=== PATIENT | female | born 2000 | race Caucasian/White ===

== ENCOUNTER 2019-08-13 20:37 | Emergency (ER) | payer OTHER ==
[~2019-08-13] VITALS: Ht 152.4 cm; Wt 63.5 kg
--- NOTE | 2019-08-13 21:27 | NUR ---
PT AAOX4. BIBFRIDN C/O R CHEST WALL PORT OCCULUSION. PER PATIENT, HER NURSE ADVISED HER TO GO TO THE E.D. TO HAVE THE PORT CHECKED. VSS. PLACED ON MONITOR AND PULSE OX.
--- NOTE | 2019-08-13 21:52 | NUR ---
CARDIAC CARE UNIT NURSE AT BEDSIDE FOR CATH PLACEMENT. 500NS INITITATED.
--- NOTE | 2019-08-13 22:14 | NUR ---
Patient discharged to home in stable condition. Written and verbal after care instructions given. Patient verbalizes understanding of instruction. Pt left with friend. 500ns given.
[2019-08-13 22:15] VITALS: BP 122/72
== END 2019-08-13 22:15 | disposition home or self-care (01) ==
LOC: ER 20:41
DX: T80.89XA Other complications following infusion, transfusion and therapeutic injection, initial encounter (principal); R00.0 Tachycardia, unspecified; E27.40 Unspecified adrenocortical insufficiency; M45.9 Ankylosing spondylitis of unspecified sites in spine; G43.909 Migraine, unspecified, not intractable, without status migrainosus; J45.909 Unspecified asthma, uncomplicated; Z98.890 Other specified postprocedural states; Z88.8 Allergy status to other drugs, medicaments and biological substances; Z88.0 Allergy status to penicillin; Z88.6 Allergy status to analgesic agent; Z88.5 Allergy status to narcotic agent; Z88.9 Allergy status to unspecified drugs, medicaments and biological substances; Z91.040 Latex allergy status
CPT/HCPCS: 99284; J7040